=== PATIENT | female | born 1995 | race African-American/Black ===

== ENCOUNTER 2016-08-17 21:52 | Emergency (ER) | payer BC ==
[2016-08-18] MEDS ORDERED: Ketorolac INJ* 60 MG/2 ML VIAL IM ONE (00:49)
--- NOTE | 2016-08-18 01:48 | ED ---
I, Oh,Royce, scribed for Fernando Cabrera MD on 08/18/16 at 0112 . Back Pain - HPI Summary HPI Summary: This 20 y/o female presents to ED with chief complaint of tailbone pain since yesterday. Pt states that she had a mechanical fall and landed on her tailbone while hiking a trail yesterday. She noted gradually worsening pain at work this morning, but dismissed it as being sore from exertion yesterday. She decided to visit ED when pain continued to worsen and persist. he reports urinary incontinence. Movement makes it worse. She is noted lying prone on stretcher at time of initial evaluation. LMP was 2 weeks ago. IUD is in place. - History of Current Complaint Chief Complaint: EDBackInjuryPain Stated Complaint: FALL/TAIL BONE PAIN Time Seen by Provider: 08/18/16 00:42 Hx Obtained From: Patient Hx Last Menstrual Period: 01/07/16 Onset/Duration: Sudden Onset, Lasting Days, Still Present Onset/Duration: Traumatic, Still Present Timing: Constant Back Pain Location: Is Discrete @ - tailbone Pain Intensity: 8 Pain Scale Used: 0-10 Numeric Aggravating Symptom(s): Movement Alleviating Symptom(s): Rest, Position - supine position - Allergies/Home Medications Allergies/Adverse Reactions: Allergies Allergy/AdvReac Type Severity Reaction Status Date / Time seasonal Allergy Congestion Uncoded 04/08/16 14:57 PMH/Surg Hx/FS Hx/Imm Hx Endocrine/Hematology History: Denies: Hx Diabetes, Hx Thyroid Disease Cardiovascular History: Denies: Hx Hypertension, Hx Pacemaker/ICD Respiratory History: Reports: Hx Asthma, Other Respiratory Problems/Disorders - SLEEP APNEA Denies: Hx Chronic Obstructive Pulmonary Disease (COPD) GI History: Denies: Hx Ulcer History: Denies: Hx Renal Disease Sensory History: Reports: Hx Contacts or Glasses Denies: Hx Hearing Aid Opthamlomology History: Reports: Hx Contacts or Glasses Psychiatric History: Denies: Hx Panic Disorder - Surgical History Surgery Procedure, Year, and Place: none - Immunization History Date of Tetanus Vaccine: Unk Date of Influenza Vaccine: Fall 2012 Infectious Disease History: No Infectious Disease History: Denies: Hx Clostridium Difficile, Hx Hepatitis, Hx Human Immunodeficiency Virus (HIV), Hx of Known/Suspected MRSA, Hx Shingles, Hx Tuberculosis, Hx Known/ Suspected VRE, Hx Known/Suspected VRSA, History Other Infectious Disease, Traveled Outside the [place] in Last 30 Days - Family History Known Family History: Positive: Cardiac Disease - Social History Alcohol Use: None Hx Substance Use: Yes Substance Use Type: Reports: Marijuana Substance Use Comment - Amount & Last Used: rarely Hx Tobacco Use: Yes Smoking Status (MU): Former Smoker Type: Cigarettes Have You Smoked in the Last Year: No Review of Systems Negative: Fever Positive: incontinence Positive: Other - pain at tailbone All Other Systems Reviewed And Are Negative: Yes Physical Exam Triage Information Reviewed: Yes Vital Signs On Initial Exam: Initial Vitals Temp Pulse Resp BP Pulse Ox 99.5 F 86 17 152/69 100 08/17/16 21:56 08/17/16 21:56 08/17/16 21:56 08/17/16 21:56 08/17/16 21:56 Vital Signs Reviewed: Yes Appearance: Positive: Well-Appearing, Pain Distress - mild discomfort Skin: Positive: Warm Head/Face: Positive: Normal Head/Face Inspection Eyes: Positive: ANAIS ENT: Positive: Hearing grossly normal Respiratory/Lung Sounds: Positive: Breath Sounds Present Abdomen Description: Positive: Nontender, Soft Musculoskeletal: Positive: Other - mild coocygesl tenderness Neurological: Positive: Sensory/Motor Intact, Alert, Oriented to Person Place, Time, Normal Gait Diagnostics - Vital Signs Vital Signs Temp Pulse Resp BP Pulse Ox 08/17/16 23:12 99.1 F 80 15 144/72 100 08/17/16 21:56 99.5 F 86 17 152/69 100 - Laboratory Lab Statement: Any lab studies that have been ordered have been reviewed, and results considered in the medical decision making process. - Radiology Sacrum/Coccyx Xray Interpretation: No Acute Changes - negative fx Radiology Interpretation Completed By: ED Physician Back Pain Course/Dx - Diagnoses Provider Diagnoses: Coccygeal contusion Discharge - Discharge Plan Condition: Stable Disposition: HOME Patient Education Materials: Coccyx Injury (ED) Forms: *Work Release Referrals: Leobardo Hoffman NP [Primary Care Provider] - 2 Days The documentation as recorded by the [place] [facility] accurately reflects the service I personally performed and the decisions made by me, Fernando Cabrera MD.
[2016-08-18 02:26] VITALS: BP 127/61
--- NOTE | 2016-08-18 07:59 | RAD ---
HISTORY: Fall, pain, incontinence COMPARISONS: None VIEWS: 4, frontal, outlet, and lateral views of the sacrum and coccyx FINDINGS: BONE DENSITY: Normal. BONES: There is no displaced fracture. JOINTS: There is no arthropathy. ALIGNMENT: There is no dislocation. SOFT TISSUES: Unremarkable. OTHER FINDINGS: None. IMPRESSION: NO ACUTE OSSEOUS INJURY OF THE SACRUM AND COCCYX. PLAIN FILMS ARE RELATIVELY INSENSITIVE TO NONDISPLACED FRACTURES OF THE SACRUM AND COCCYX. IF THERE IS PERSISTENT CLINICAL CONCERN FOR SACROCOCCYGEAL OSSEOUS PATHOLOGY, BONE SCANNING MAY BE MORE SENSITIVE
== END 2016-08-18 02:23 | disposition home or self-care (01) ==
LOC: ED 21:52
DX: S39.82XA Other specified injuries of lower back, initial encounter (principal); W19.XXXA Unspecified fall, initial encounter; Z87.891 Personal history of nicotine dependence; Y93.01 Activity, walking, marching and hiking; Y92.9 Unspecified place or not applicable
CPT/HCPCS: 72220; 96372; 99282; J1885

== ENCOUNTER 2017-06-13 14:17 | Emergency (ER) | payer BC ==
[2017-06-13 15:20] LABS: ABS Basophils 0 10^3/ul (0-0.2); ABS Eosinophils 0.2 10^3/ul (0-0.6); ABS Lymphocytes 3.2 10^3/ul (1.0-4.8); ABS Monocytes 0.6 10^3/ul (0-0.8); ABS Neutrophils 2.9 10^3/ul (1.5-7.7); ABS Nucleated RBC 0 10^3/ul; Eosinophil % 2.6 % (0-6); Hematocrit 35 % (35-47); Hemoglobin 11.4 g/dl (12.0-16.0); Lymphocyte % 46.3 % (25-47); Mean Corpuscular HGB Conc 33 g/dl (31-36); Mean Corpuscular Hemoglobin 27 pg (27-31); Mean Corpuscular Volume 80 fL (80-97); Mean Platelet Volume 8 um3 (7.4-10.4); Nucleated Red Blood Cells % 0.1; Platelet Count 228 10^3/ul (150-450); Red Cell Distribution Width 15 % (10.5-15); White Blood Count 6.9 10^3/ul (3.5-10.8)
[2017-06-13 15:39] LABS: EGFR Non-African American 132.5 (>60)
--- NOTE | 2017-06-13 16:20 | RAD ---
Indication: Chest pain, palpitations, shortness of breath for a few days with worsening. Comparison: April 08, 2016 CT. Technique: Upright AP 1525 hours. Report: Clear lungs and pleural spaces. Negative for pneumothorax. The heart, pulmonary vasculature, and mediastinal contours are unremarkable. Unremarkable osseous structures and soft tissue contours. IMPRESSION: No evidence for acute intrathoracic disease.
[2017-06-13 17:42] VITALS: BP 139/65
--- NOTE | 2017-06-14 10:54 | ED ---
Leilani Santiago Edward, scribed for Harrison Abdullahi MD on 06/13/17 at 1545 . HPI Chest Pain - HPI Summary HPI Summary: 21 y/o female presents to the ED c/o intermittent CP starting this morning, lasting seconds at a time. The pain is 0/10 at rest. It is described as a stabbing pain. The chest is in the mid sternal region, with radiation to the hip and ankle. The pain is aggravated with deep breaths, aggravated with movement. Pt c/o palpitations for the past few days. Denies injury. Denies N/V. Denies SOB, dizziness. Associated sx: nasal congestion, dry cough. - History of Current Complaint Chief Complaint: EDChestPainROMI Time Seen by Provider: 06/13/17 14:59 Hx Obtained From: Patient Hx Last Menstrual Period: 01/07/16 Onset/Duration: Started Hours Ago Timing: Intermittent Current Severity: None Pain Intensity: 0 Pain Scale Used: 0-10 Numeric Chest Pain Location: Mid Sternal Chest Pain Radiates: Yes Chest Pain Radiates To:: Other - Hip and ankle Character: Sharp/Stabbing Aggravating Factor(s): Movement, Deep Breaths Alleviating Factor(s): Rest Associated Signs and Symptoms: Positive: Chest Pain, Cough, Other: - palpitations - Allergy/Home Medications Allergies/Adverse Reactions: Allergies Allergy/AdvReac Type Severity Reaction Status Date / Time seasonal Allergy Congestion Uncoded 04/08/16 14:57 PMH/Surg Hx/FS Hx/Imm Hx Previously Healthy: No Endocrine/Hematology History: Denies: Hx Diabetes, Hx Thyroid Disease Cardiovascular History: Denies: Hx Hypertension, Hx Pacemaker/ICD Respiratory History: Reports: Hx Asthma, Other Respiratory Problems/Disorders - SLEEP APNEA Denies: Hx Chronic Obstructive Pulmonary Disease (COPD) GI History: Denies: Hx Ulcer History: Denies: Hx Renal Disease Sensory History: Reports: Hx Contacts or Glasses Denies: Hx Hearing Aid Opthamlomology History: Reports: Hx Contacts or Glasses Psychiatric History: Denies: Hx Panic Disorder - Surgical History Surgery Procedure, Year, and Place: none - Immunization History Date of Tetanus Vaccine: Unk Date of Influenza Vaccine: Fall 2012 Infectious Disease History: No Infectious Disease History: Denies: Hx Clostridium Difficile, Hx Hepatitis, Hx Human Immunodeficiency Virus (HIV), Hx of Known/Suspected MRSA, Hx Shingles, Hx Tuberculosis, Hx Known/ Suspected VRE, Hx Known/Suspected VRSA, History Other Infectious Disease, Traveled Outside the [place] in Last 30 Days - Family History Known Family History: Positive: Cardiac Disease, Respiratory Disease - asthma, sleep apnea - Social History Alcohol Use: None Hx Substance Use: Yes Substance Use Type: Reports: Marijuana Substance Use Comment - Amount & Last Used: rarely Hx Tobacco Use: Yes Smoking Status (MU): Former Smoker Type: Cigarettes Have You Smoked in the Last Year: No Review of Systems Constitutional: Negative Eyes: Negative ENT: Negative Positive: Palpitations, Chest Pain Positive: Cough. Negative: Shortness Of Breath Gastrointestinal: Negative Genitourinary: Negative Musculoskeletal: Negative Skin: Negative Neurological: Negative Psychological: Normal All Other Systems Reviewed And Are Negative: Yes Physical Exam - Summary Physical Exam Summary: VITAL SIGNS: Reviewed. GENERAL: Patient is a well-developed and nourished female who is lying comfortable in the stretcher. Patient is not in any acute respiratory distress. HEAD AND FACE: No signs of trauma. No ecchymosis, hematomas or skull depressions. No sinus tenderness. EYES: PERRLA, EOMI x 2, No injected conjunctiva, no nystagmus. EARS: Hearing grossly intact. Ear canals and tympanic membranes are within normal limits. MOUTH: Oropharynx within normal limits. NECK: Supple, trachea is midline, no adenopathy, no JVD, no carotid bruit, no c- spine tenderness, neck with full ROM. CHEST: Reproducible CP in retrosternal area. LUNGS: Clear to auscultation bilaterally. No wheezing or crackles. CVS: Regular rate and rhythm, S1 and S2 present, no murmurs or gallops appreciated. ABDOMEN: Soft, non-tender. No signs of distention. No rebound no guarding, and no masses palpated. Bowel sounds are normal. EXTREMITIES: FROM in all major joints, no edema, no cyanosis or clubbing. NEURO: Alert and oriented x 3. No acute neurological deficits. Speech is normal and follows commands. SKIN: Dry and warm Triage Information Reviewed: Yes Vital Signs On Initial Exam: Initial Vitals Temp Pulse Resp BP Pulse Ox 97.2 F 70 16 128/72 100 06/13/17 14:34 06/13/17 14:34 06/13/17 14:34 06/13/17 14:34 06/13/17 14:34 Vital Signs Reviewed: Yes Diagnostics - Vital Signs Vital Signs Temp Pulse Resp BP Pulse Ox 06/13/17 15:30 70 18 115/69 99 06/13/17 15:13 67 100 06/13/17 15:11 123/66 06/13/17 14:34 97.2 F 70 16 128/72 100 - Laboratory Lab Results: Lab Results 06/13/17 06/13/17 06/13/17 Range/Units 15:06 15:06 15:06 WBC 6.9 (3.5-10.8) 10^3/ul RBC 4.30 (4.0-5.4) 10^6/ul Hgb 11.4 L (12.0-16.0) g/dl Hct 35 (35-47) % MCV 80 (80-97) fL MCH 27 (27-31) pg MCHC 33 (31-36) g/dl RDW 15 (10.5-15) % Plt Count 228 (150-450) 10^3/ul MPV 8 (7.4-10.4) um3 Neut % (Auto) 42.1 (38-83) % Lymph % (Auto) 46.3 (25-47) % Finney % (Auto) 8.5 (1-9) % Eos % (Auto) 2.6 (0-6) % Baso % (Auto) 0.5 (0-2) % Absolute Neuts (auto) 2.9 (1.5-7.7) 10^3/ul Absolute Lymphs (auto) 3.2 (1.0-4.8) 10^3/ul Absolute Monos (auto) 0.6 (0-0.8) 10^3/ul Absolute Eos (auto) 0.2 (0-0.6) 10^3/ul Absolute Basos (auto) 0 (0-0.2) 10^3/ul Absolute Nucleated RBC 0 10^3/ul Nucleated RBC % 0.1 Sodium 136 (133-145) mmol/L Potassium 3.9 (3.5-5.0) mmol/L Chloride 106 (101-111) mmol/L Carbon Dioxide 25 (22-32) mmol/L Anion Gap 5 (2-11) mmol/L BUN 13 (6-24) mg/dL Creatinine 0.58 (0.51-0.95) mg/dL Est GFR ( Amer) 170.5 (>60) Est GFR (Non-Af Amer) 132.5 (>60) BUN/Creatinine Ratio 22.4 H (8-20) Glucose 97 (70-100) mg/dL Lactic Acid 0.6 (0.5-2.0) mmol/L Calcium 9.4 (8.6-10.3) mg/dL Magnesium 2.1 (1.9-2.7) mg/dL Total Bilirubin 0.40 (0.2-1.0) mg/dL AST 18 (13-39) U/L ALT 13 (7-52) U/L Alkaline Phosphatase 51 (34-104) U/L Total Creatine Kinase 95 (10-223) U/L CK-MB (CK-2) Pending Troponin I Pending Total Protein 6.7 (6.4-8.9) g/dL Albumin 4.1 (3.2-5.2) g/dL Globulin 2.6 (2-4) g/dL Albumin/Globulin Ratio 1.6 (1-3) TSH Pending Result Diagrams: 06/13/17 15:06 06/13/17 15:06 Lab Statement: Any lab studies that have been ordered have been reviewed, and results considered in the medical decision making process. - Radiology CXR Xray Interpretation: No Acute Changes - NO EVIDENCE FOR ACUTE INTROTHORACIC DISEASE Radiology Interpretation Completed By: Radiologist - ED PHYSICIAN REVIEWS AND AGREES - Additional Comments Diagnostic Additional Comments: 14:41 - SB @ [address] Elevations. Chest Pain Course/Dx - Course Assessment/Plan: 21 y/o female presents to the ED c/o intermittent CP starting this morning, lasting seconds at a time. The pain is 0/10 at rest. It is described as a stabbing pain. The chest is in the mid sternal region, with radiation to the hip and ankle. The pain is aggravated with deep breaths, aggravated with movement. Pt c/o palpitations for the past few days. Denies injury. Denies N/V. Denies SOB, dizziness. Associated sx: nasal congestion, dry cough. CXR SHOWS NO EVIDENCE FOR ACUTE INTROTHORACIC DISEASE. Test results without significant abnormalities. Troponin negative. Pt given toradol for pain and sx resolved. I believe the pt has chest wall pain. Therefore the pt will be d/c home with f/u PCP. Pt instructed to return if sx worsens or returns. - Diagnoses Provider Diagnoses: Atypical chest pain Discharge - Discharge Plan Condition: Stable Disposition: HOME Prescriptions: Naproxen TAB* [Naprosyn 250 mg TAB*] 250 mg PO Q8H PRN #30 tab PRN Reason: Pain Patient Education Materials: Chest Pain (ED) Forms: *Work Release Referrals: Leobardo Hoffman NP [Primary Care Provider] - 4 Days (PLEASE F/U IN 3-5 DAYS) The documentation as recorded by the [place] [facility] accurately reflects the service I personally performed and the decisions made by me, Harrison Abdullahi MD.
== END 2017-06-13 17:41 | disposition home or self-care (01) ==
LOC: ED 14:17
DX: R07.89 Other chest pain (principal); Z87.891 Personal history of nicotine dependence
CPT/HCPCS: 36415; 71045; 80053; 82550; 82553; 83605; 83735; 83880; 84443; 84484; 84702; 85025; 93005; 99283

== ENCOUNTER 2018-07-17 02:19 | Emergency (ER) | payer BC ==
--- NOTE | 2018-07-17 03:07 | ED ---
Respiratory - HPI Summary HPI Summary: This patient is a 22 year old F presenting to ED with a chief complaint of cough since about 1 week ago. Patient was around a sick coworker before onset. She has been taking Mucinex. The patient rates the pain 1/10 in severity. Symptoms aggravated by nothing. Symptoms alleviated by nothing. Patient reports nasal congestion and slightly SOB. She also reports decreased PO due to coughing as well as decreased sleep. Patient denies fever. PMHx of childhood asthma. Patient is a smoker. - History of Current Complaint Chief Complaint: EDUpperRespComplaint Stated Complaint: CONGESTION AND REALLY BAD COUGH, VOMITING PER PT Hx Obtained From: Patient Onset/Duration: Sudden Onset, Lasting Weeks, Still Present Timing: Constant Current Severity: Mild Pain Intensity: 1 Aggravating Factor(s): Nothing Alleviating Factor(s): Nothing Associated Signs and Symptoms: SOB, Nasal Congestion - Allergy/Home Medications Allergies/Adverse Reactions: Allergies Allergy/AdvReac Type Severity Reaction Status Date / Time seasonal Allergy Congestion Uncoded 07/17/18 02:24 PMH/Surg Hx/FS Hx/Imm Hx Endocrine/Hematology History: Denies: Hx Diabetes, Hx Thyroid Disease Cardiovascular History: Denies: Hx Hypertension, Hx Pacemaker/ICD Respiratory History: Reports: Hx Asthma, Other Respiratory Problems/Disorders - SLEEP APNEA Denies: Hx Chronic Obstructive Pulmonary Disease (COPD) GI History: Denies: Hx Ulcer History: Denies: Hx Renal Disease Sensory History: Reports: Hx Contacts or Glasses Denies: Hx Hearing Aid Opthamlomology History: Reports: Hx Contacts or Glasses Psychiatric History: Denies: Hx Panic Disorder - Surgical History Surgery Procedure, Year, and Place: none - Immunization History Date of Tetanus Vaccine: Unk Date of Influenza Vaccine: Fall 2012 Infectious Disease History: No Infectious Disease History: Denies: Hx Clostridium Difficile, Hx Hepatitis, Hx Human Immunodeficiency Virus (HIV), Hx of Known/Suspected MRSA, Hx Shingles, Hx Tuberculosis, Hx Known/ Suspected VRE, Hx Known/Suspected VRSA, History Other Infectious Disease, Traveled Outside the [place] in Last 30 Days - Family History Known Family History: Positive: Cardiac Disease, Respiratory Disease - asthma, sleep apnea - Social History Alcohol Use: None Hx Substance Use: Yes Substance Use Type: Reports: Marijuana Substance Use Comment - Amount & Last Used: rarely Hx Tobacco Use: Yes Type: Cigarettes Have You Smoked in the Last Year: No Review of Systems Negative: Fever Positive: Other - nasal congestion Positive: Shortness Of Breath, Cough Positive: Other - decreased PO due to coughing Neurological: Other - decreased sleep due to coughing All Other Systems Reviewed And Are Negative: Yes Physical Exam - Summary Physical Exam Summary: Appearance: Well-appearing, Well-nourished, lying in bed comfortably Skin: Warm, dry, no obvious rash Eyes: sclera anicteric, no conjunctival pallor ENT: mucous membranes moist, pharynx appears normal Neck: Supple, nontender Respiratory: Clear to auscultation, no signs of respiratory distress Cardiovascular: Normal S1, S2. No murmurs. Normal distal pulses in tibial and radial bilaterally. Abdomen: Soft, nontender, normal active bowel sounds present Musculoskeletal: Normal, Strength/ROM Intact Neurological: A&Ox3, awake and alert, mentation is normal, speech is fluent and appropriate Psychiatric: affect is normal, does not appear anxious or depressed Triage Information Reviewed: Yes Vital Signs On Initial Exam: Initial Vitals Temp Pulse Resp BP Pulse Ox 97.9 F 81 16 136/77 97 07/17/18 02:23 07/17/18 02:23 07/17/18 02:23 07/17/18 02:23 07/17/18 02:23 Vital Signs Reviewed: Yes Diagnostics - Vital Signs Vital Signs Temp Pulse Resp BP Pulse Ox 07/17/18 02:23 97.9 F 81 16 136/77 97 - Laboratory Lab Statement: Any lab studies that have been ordered have been reviewed, and results considered in the medical decision making process. Disposition - Course Assessment/Plan: This patient is a 22 year old F presenting to ED with a chief complaint of cough since about 1 week ago. This patient will be discharged with dx of bronchitis. Patient understands and agrees with this plan. - Differential Dx - Cardiopulmonary Differential Diagnoses - Cardiopulmonary: Bronchitis - Diagnoses Provider Diagnoses: Bronchitis Discharge - Sign-Out/Discharge Documenting (check all that apply): Patient Departure - discharge Patient Received Moderate/Deep Sedation with Procedure: No - Discharge Plan Referrals: Leobardo Hoffman, WEATHERIZATION OPERATIONS MANAGER [Primary Care Provider] - - Attestation Statements Document Initiated by Scribe: Yes Documenting Scribe: Ibrahima Dennis Provider For Whom Scribe is Documenting (Include Credential): Eric Combs MD Scribe Attestation: Ibrahima Santiago, scribed for Eric Combs MD on 07/17/18 at 0306. Status of Scribe Document: Ready
[2018-07-17 03:22] VITALS: BP 0/0
== END 2018-07-17 03:20 | disposition home or self-care (01) ==
LOC: ED 02:19
DX: J45.909 Unspecified asthma, uncomplicated (principal)
CPT/HCPCS: 99282